=== PATIENT | female | born 1990 | race Caucasian/White ===

== ENCOUNTER 2021-01-31 03:07 | Emergency (ER) | payer MEDICARE, MEDICAID ==
[~2021-01-31] VITALS: Ht 172.7 cm; Wt 56.0 kg
[2021-01-31 03:32] LABS: BASOPHILS % 0.5 % (0.0-2.0); HEMATOCRIT. 30.1 % (36.0-48.0); HEMOGLOBIN. 9.9 g/dL (12.0-16.0); LYMPHOCYTES % 9.9 % (20.0-50.0); MEAN CORPUSCULAR HEMOGLOBIN 27.4 pg (28.0-32.0); MEAN CORPUSCULAR VOLUME 82.8 fL (81.0-99.0); MEAN PLATELET VOLUME 7.8 fl (7.4-10.4); MONOCYTES % 6.7 % (2.0-8.0); NEUTROPHILS % 82.9 % (40.0-76.0); PLATELET 353 x1000/uL (130-400); RED BLOOD CELL COUNT 3.63 mill/uL (4.2-5.4); RED CELL DISTRIBUTION WIDTH 20.6 % (11.6-14.6)
[2021-01-31 03:40] LABS: CHLORIDE 104 mEq/L (98-107)
[2021-01-31 03:46] LABS: ETHANOL BLOOD < 10 mg/dL
[2021-01-31 04:00] LABS: CLARITY URINE CLOUDY (CLEAR); COLOR URINE YELLOW (YELLOW); KETONES URINE NEGATIVE (NEGATIVE); LEUKOCYTE ESTERASE URINE 3+ (NEGATIVE); NITRITE URINE NEGATIVE (NEGATIVE); OCCULT BLOOD URINE NEGATIVE (NEGATIVE); PROTEIN URINE 1+ (NEGATIVE)
[2021-01-31 04:09] LABS: *BARBITURATES SCREEN URINE NEGATIVE (NEGATIVE)
[2021-01-31 04:10] LABS: CANNABINOID URINE SCREEN NEGATIVE (NEGATIVE); METHADONE URINE SCREEN NEGATIVE (NEGATIVE); PHENCYCLIDINE URINE SCREEN NEGATIVE (NEGATIVE)
[2021-01-31 04:14] LABS: *AMPHETAMINES SCREEN URINE PRESUMTIVE POSITIVE (NEGATIVE); *BENZODIAZEPINES SCREEN URINE PRESUMTIVE POSITIVE (NEGATIVE); *COCAINE SCREEN URINE PRESUMTIVE POSITIVE (NEGATIVE); OPIATES URINE SCREEN PRESUMTIVE POSITIVE (NEGATIVE)
[2021-01-31] MEDS ORDERED: CEPHALEXIN 250MG CAPSULE PO NR (05:15)
[2021-01-31] MEDS ORDERED: OLANZAPINE 5MG TABLET ODT PO ONE (05:30)
[2021-01-31] MEDS ORDERED: QUETIAPINE FUMARATE 50MG TABLET PO SCH ×2 (05:30→06:00)
[2021-01-31 05:55] VITALS: BP 128/74
== END 2021-01-31 06:13 | disposition home or self-care (01) ==
LOC: ER 03:07
DX: F22 Delusional disorders (principal); F15.90 Other stimulant use, unspecified, uncomplicated; F11.20 Opioid dependence, uncomplicated; F19.10 Other psychoactive substance abuse, uncomplicated; F28 Other psychotic disorder not due to a substance or known physiological condition; Z98.890 Other specified postprocedural states; Z86.59 Personal history of other mental and behavioral disorders; Z76.5 Malingerer [conscious simulation]
CPT/HCPCS: 36415; 80053; 80305; 80307; 80320; 80329; 81003; 81025; 82962; 85025; 99283; G0480

== ENCOUNTER 2021-01-31 16:03 | Emergency (ER) | payer MEDICARE, MEDICAID ==
[~2021-01-31] VITALS: Ht 167.6 cm; Wt 70.0 kg
[2021-01-31] MEDS ORDERED: LORAZEPAM 1MG TABLET PO ONE (16:15)
[2021-01-31 17:10] VITALS: BP 109/64
== END 2021-01-31 17:23 | disposition home or self-care (01) ==
LOC: ER 16:11
DX: F13.239 Sedative, hypnotic or anxiolytic dependence with withdrawal, unspecified (principal); T42.4X5A Adverse effect of benzodiazepines, initial encounter; F15.10 Other stimulant abuse, uncomplicated; F11.20 Opioid dependence, uncomplicated; Z98.890 Other specified postprocedural states; Z86.59 Personal history of other mental and behavioral disorders; Y92.9 Unspecified place or not applicable
CPT/HCPCS: 99283

== ENCOUNTER 2022-03-09 07:48 | Emergency (ER) | payer MEDICARE, OTHER ==
[~2022-03-09] VITALS: Ht 160 cm; Wt 86.0 kg
[2022-03-09 07:53] VITALS: BP 150/92
== END 2022-03-09 08:07 | disposition left against medical advice (07) ==
LOC: ER 07:48
DX: F15.129 Other stimulant abuse with intoxication, unspecified (principal); F20.9 Schizophrenia, unspecified; G40.909 Epilepsy, unspecified, not intractable, without status epilepticus; R03.0 Elevated blood-pressure reading, without diagnosis of hypertension
CPT/HCPCS: 99283

== ENCOUNTER 2023-03-02 18:13 | Emergency (ER) | payer MEDICARE, OTHER ==
[~2023-03-02] VITALS: Ht 162.6 cm; Wt 64.0 kg
[2023-03-02 18:23] VITALS: BP 115/70; PULSE 96; RESP 16; TEMP 99.3; O2SAT 95
== END 2023-03-02 20:19 | disposition left against medical advice (07) ==
LOC: ER 18:13
DX: Z53.21 Procedure and treatment not carried out due to patient leaving prior to being seen by health care provider (principal)
CPT/HCPCS: 99281

== ENCOUNTER 2024-07-04 21:01 | Emergency (ER) | payer MEDICARE, MEDICAID ==
[~2024-07-04] VITALS: Ht 162.6 cm; Wt 74.0 kg
[2024-07-04 21:03] VITALS: TEMP 99.2; O2SAT 98
[2024-07-04 21:35] VITALS: BP 125/85; PULSE 98; RESP 15; O2SAT 100
[2024-07-04] MEDS ORDERED: BUPR1FIL7 SL (21:49)
[2024-07-04] MEDS: BUPRENORPHINE 8MG SL TABLET SL ONE (22:10)
[2024-07-04] MEDS: LORAZEPAM 1MG TABLET PO ONE (22:11)
== END 2024-07-04 22:39 | disposition home or self-care (01) ==
LOC: ER 21:01
DX: F13.239 Sedative, hypnotic or anxiolytic dependence with withdrawal, unspecified (principal); F41.9 Anxiety disorder, unspecified; F14.10 Cocaine abuse, uncomplicated; F15.10 Other stimulant abuse, uncomplicated; F11.10 Opioid abuse, uncomplicated; Z86.59 Personal history of other mental and behavioral disorders
CPT/HCPCS: 99283

== ENCOUNTER 2024-08-05 11:35 | Emergency (ER) | payer MEDICARE, MEDICAID ==
[~2024-08-05] VITALS: Ht 165.1 cm; Wt 70.0 kg
[~2024-08-05 11:35] MED LIST: BUPR1FIL7 SL
[2024-08-05 11:37] VITALS: BP 130/84; PULSE 100; RESP 20; TEMP 98.2; O2SAT 98
== END 2024-08-05 14:01 | disposition home or self-care (01) ==
LOC: ER 11:35
DX: Z76.0 Encounter for issue of repeat prescription (principal); F20.9 Schizophrenia, unspecified; F41.9 Anxiety disorder, unspecified; F14.90 Cocaine use, unspecified, uncomplicated; F15.90 Other stimulant use, unspecified, uncomplicated
CPT/HCPCS: 99283